=== PATIENT | female | born 1950 | race Caucasian/White ===

== ENCOUNTER 2017-02-15 22:07 | Emergency (ER) | payer BC ==
--- NOTE | 2017-02-15 22:46 | ED ---
Head Injury - HPI Summary HPI Summary: Patient sent here by for imaging of the head. Patient fell backwards off a chair this afternoon about 4 hours ago and sustained a laceration to the the back of the head. She denies memory loss, confusion, behavioral changes, N/V or LEVIN. She has never injured her head before, does not take blood thinners and is otherwise healthy. She takes BP medications and today her BP is well controlled. Laceration was repaired at with 3 dima. Minimal blood loss. Patient is otherwise stable and has no complaints. No LOC. - History Of Current Complaint Chief Complaint: EDHeadInjury Stated Complaint: HEAD INJURY-SENT FROM [facility] Time Seen by Provider: 02/15/17 22:17 Hx Obtained From: Patient Mechanism Of Injury: Direct Blow Onset/Duration: Started Hours Ago Onset of Pain: Immediate Severity Currently: Mild Severity Initially: Mild Pain Intensity: 0 Pain Scale Used: 0-10 Numeric Location of Head Injury: Occipital Location: Discrete At: - ociptal Character: Aching Associated Signs And Symptoms: Negative - Risk Factors SDH Risk Factor: Negative - Allergies/Home Medications Allergies/Adverse Reactions: Allergies Allergy/AdvReac Type Severity Reaction Status Date / Time Codeine Allergy Intermediate Rash Verified 02/15/17 19:26 PMH/Surg Hx/FS Hx/Imm Hx Previously Healthy: Yes Cardiovascular History: Reports: Hx Hypertension - Cancer History Hx Chemotherapy: No Hx Radiation Therapy: No - Surgical History Surgery Procedure, Year, and Place: Gallbladder. Tonsil - Immunization History Hx Pertussis Vaccination: No Immunizations Up to Date: Yes Infectious Disease History: No Infectious Disease History: Denies: Traveled Outside the [place] in Last 30 Days - Social History Occupation: Retired Lives: With Family Alcohol Use: None Hx Substance Use: No Substance Use Type: Reports: None Hx Tobacco Use: No Smoking Status (MU): Never Smoked Tobacco Do You Chew or Dip Tobacco: No Review of Systems Constitutional: Negative Eyes: Negative Cardiovascular: Negative Respiratory: Negative Positive: no symptoms reported, see HPI Musculoskeletal: Negative Positive: Other - small 1cm laceration to occipital area Neurological: Negative Psychological: Normal All Other Systems Reviewed And Are Negative: Yes Physical Exam Triage Information Reviewed: Yes Vital Signs On Initial Exam: Initial Vitals Temp Pulse Resp BP Pulse Ox 98.5 F 80 16 156/68 99 02/15/17 22:09 02/15/17 22:09 02/15/17 22:09 02/15/17 22:09 02/15/17 22:09 Vital Signs Reviewed: Yes Appearance: Positive: Well-Appearing, Well-Nourished Skin: Positive: Warm, Skin Color Reflects Adequate Perfusion, Other - 1cm laceration to posterior area of head Eyes: Positive: Normal, MICHELLE, Conjunctiva Clear Neck: Positive: Supple, No Lymphadenopathy Respiratory/Lung Sounds: Positive: Clear to Auscultation, Breath Sounds Present Cardiovascular: Positive: Normal, RRR, Pulses are Symmetrical in both Upper and Lower Extremities Musculoskeletal: Positive: Normal, Strength/ROM Intact Neurological: Positive: Normal, Sensory/Motor Intact, Alert, Oriented to Person Place, Time, CN Intact II-III, Normal Gait, Speech Normal Psychiatric: Positive: Normal AVPU Assessment: Alert - Dewart Coma Scale Coma Scale Total: 15 Diagnostics - Vital Signs Vital Signs Temp Pulse Resp BP Pulse Ox 02/15/17 22:23 98.5 F 80 16 156/68 99 02/15/17 22:09 98.5 F 80 16 156/68 99 - Laboratory Lab Statement: Any lab studies that have been ordered have been reviewed, and results considered in the medical decision making process. Head Injury Course/Dx Course Of Treatment: According to [place] CT Head Rules, CT WAS obtained d/t: Age >64 yo. Complete neuro exam completed and WNL. Normal head/face inspection with no cephalohematoma. Reflexes intact. EOMI, MICHELLE. No obvious confusion or memory loss per patient and family. MMSE OK. GCS 15. Patient oriented to person, place and date. No obvious deformity or signs of trauma. Patient denies LOC. Visual acuity intact. ROM, strength, reflexes un upper and lower extremity intact, sensation intact. Patient discharged with return precautions and post-concussive symptoms explained to patient. Patient agrees to follow up and return if needed. Impression: Scalp laceration without skull fracture or intracranial hemorrhage. - Diagnoses Differential Diagnosis/HQI/PQRI: Concussion With LOC, Concussion Without LOC, Contusion, Laceration Provider Diagnoses: Head injury Discharge - Discharge Plan Condition: Stable Disposition: HOME Patient Education Materials: Head Injury (ED) Referrals: Catina Dawson MD [Primary Care Provider] - Additional Instructions: Follow up with PCP. No injury seen on CT If you develop any symptoms such as confusion, memory loss, or pain, come back to ED.
[2017-02-15 23:41] VITALS: BP 123/61
--- NOTE | 2017-02-16 07:38 | RAD ---
INDICATION: Fall. Intracranial injury. Scalp laceration. COMPARISON: None TECHNIQUE: Noncontrast axial source images were acquired from the skull base to the vertex. FINDINGS: Ventricles/sulci: The ventricles and cisterns are normal in size and configuration for age. Brain parenchyma: There is no focal parenchymal finding, evidence of intracranial mass, or intracranial mass effect. Intracranial hemorrhage:None. Extra-axial spaces: There are no abnormal extra axial fluid collections or evidence of extra-axial mass. Calvarium: There is no calvarial fracture or other calvarial abnormality. Scalp: There is a scalp laceration posteriorly near the vertex. There are skin dima. Paranasal sinuses/mastoid: The paranasal sinuses and mastoid air cells are clear. Other: None. IMPRESSION: No acute intracranial findings. Scalp laceration.
== END 2017-02-15 23:40 | disposition home or self-care (01) ==
LOC: ED 22:07
DX: S01.01XA Laceration without foreign body of scalp, initial encounter (principal); S09.90XA Unspecified injury of head, initial encounter; W07.XXXA Fall from chair, initial encounter; Y92.9 Unspecified place or not applicable; I10 Essential (primary) hypertension; Z88.5 Allergy status to narcotic agent
CPT/HCPCS: 70450; 99282